=== PATIENT | male | born 1955 | race African-American/Black ===

== ENCOUNTER 2022-11-16 12:14 | Emergency (ER) | payer MEDICARE, MEDICAID ==
[~2022-11-16] VITALS: Ht 177.8 cm; Wt 85.0 kg
[2022-11-16 12:16] VITALS: O2SAT 98
[2022-11-16 13:14] VITALS: BP 122/64; RESP 20; TEMP 98.7
[2022-11-16 13:18] LABS: BASOPHILS % 1.3 % (0.0-2.0); EOSINOPHILS % 1.1 % (0.0-5.0); HEMATOCRIT. 36.9 % (42.0-52.0); HEMOGLOBIN. 12.3 g/dL (14.0-18.0); MEAN CORPUSCULAR HEMOGLOBIN 28.3 pg (28.0-32.0); MEAN CORPUSCULAR VOLUME 84.5 fL (80.0-94.0); MEAN PLATELET VOLUME 7.5 fl (7.4-10.4); MONOCYTES % 14.1 % (2.0-8.0); NEUTROPHILS % 53.5 % (40.0-76.0); PLATELET 240 x1000/uL (130-400); RED BLOOD CELL COUNT 4.37 mill/uL (4.7-6.1); RED CELL DISTRIBUTION WIDTH 13.7 % (11.6-14.6)
[2022-11-16 13:25] LABS: CHLORIDE 100 mEq/L (98-107)
[2022-11-16] MEDS ORDERED: INSULIN REGULAR (HUMULIN R) 300UNITS/3ML VIAL SUBCUT ONE (14:45)
[2022-11-16] MEDS ORDERED: ASPIRIN 81MG TABLET PO ONE (14:45)
[2022-11-16] MEDS ORDERED: ENOXAPARIN 100MG/ML SYR SUBCUT ONE (14:45)
[2022-11-16 15:45] VITALS: PULSE 114
[2022-11-16] MEDS ORDERED: DILTIAZEM HCL 90MG TABLET PO ONE (15:45)
[2022-11-16] MEDS ORDERED: ASPIRIN 81MG TABLET PO NR (19:00)
[2022-11-16] MEDS ORDERED: INSULIN REGULAR (HUMULIN R) 300UNITS/3ML VIAL SUBCUT NR (19:00)
[2022-11-16] MEDS ORDERED: ENOXAPARIN 100MG/ML SYR SUBCUT NR (19:00)
[2022-11-16] MEDS ORDERED: ACETAMINOPHEN 325MG TABLET PO PRN (19:15)
[2022-11-16] MEDS ORDERED: DILTIAZEM HCL 30MG TABLET PO PRN (19:15)
[2022-11-16] MEDS ORDERED: DOCUSATE SODIUM 100MG CAPSULE PO PRN (19:15)
[2022-11-16] MEDS ORDERED: ONDANSETRON HCL 4MG/2ML INJ IV PRN (19:15)
[2022-11-16] MEDS ORDERED: GUAIFENESIN 200MG/10ML SUGAR FREE UDC PO PRN (19:15)
[2022-11-16] MEDS ORDERED: HYDROCODONE/ACETAMINOPHEN 5/325MG TABLET PO PRN (19:15)
[2022-11-16] MEDS ORDERED: TRAMADOL 50MG TABLET PO PRN (19:15)
[2022-11-16] MEDS ORDERED: DIPHENHYDRAMINE 50MG/ML VIAL IV PRN (19:15)
== END 2022-11-16 20:45 | disposition left against medical advice (07) ==
LOC: ER 12:14 → EDBEDREQTM 15:50 → EDBEDREQ 15:50 → CANRESERV 20:15 → ENRESERV 20:15 → ER 20:45 → CANBEDREQ 11-18 22:07
DX: I48.91 Unspecified atrial fibrillation (principal); E11.65 Type 2 diabetes mellitus with hyperglycemia; E78.00 Pure hypercholesterolemia, unspecified; I10 Essential (primary) hypertension
CPT/HCPCS: 99291; 80053; 83880; 85025; 84484; 36415; 71045; 93005; 96372; J1650; J1815

== ENCOUNTER 2023-01-29 19:49 | Emergency (ER) | payer MEDICARE, MEDICAID ==
[~2023-01-29] VITALS: Ht 177.8 cm; Wt 91.0 kg
[2023-01-29 19:54] VITALS: BP 126/72; PULSE 92; RESP 16; TEMP 98.7; O2SAT 97
== END 2023-01-29 22:55 | disposition left against medical advice (07) ==
LOC: ER 19:49
DX: Z53.21 Procedure and treatment not carried out due to patient leaving prior to being seen by health care provider (principal)
CPT/HCPCS: 99281

== ENCOUNTER 2023-01-30 02:57 | Emergency (ER) | payer MEDICARE, MEDICAID ==
[~2023-01-30] VITALS: Ht 182.9 cm; Wt 86.0 kg
[2023-01-30 03:08] VITALS: BP 136/86; PULSE 88; RESP 16; TEMP 98.8; O2SAT 98
== END 2023-01-30 05:53 | disposition left against medical advice (07) ==
LOC: ER 02:57
DX: Z53.21 Procedure and treatment not carried out due to patient leaving prior to being seen by health care provider (principal)
CPT/HCPCS: 99281

== ENCOUNTER 2023-07-20 07:50 | Emergency (ER) | payer MEDICARE, MEDICAID ==
[~2023-07-20] VITALS: Ht 177.8 cm; Wt 90.0 kg
[2023-07-20 07:51] VITALS: BP 170/100; PULSE 86; RESP 16; TEMP 98.4; O2SAT 98
[2023-07-20] MEDS ORDERED: SODIUM CHLORIDE 0.9% 1,000 ML IV ONE (08:00)
== END 2023-07-20 13:00 | disposition left against medical advice (07) ==
LOC: ER 07:50
DX: Z04.3 Encounter for examination and observation following other accident (principal); E11.9 Type 2 diabetes mellitus without complications; I10 Essential (primary) hypertension; F19.90 Other psychoactive substance use, unspecified, uncomplicated; W01.0XXA Fall on same level from slipping, tripping and stumbling without subsequent striking against object, initial encounter; Y93.89 Activity, other specified; Y92.89 Other specified places as the place of occurrence of the external cause; Y99.8 Other external cause status
CPT/HCPCS: 99283; 71045; J7030